=== PATIENT | female | born 1965 | race Caucasian/White ===

== ENCOUNTER 2016-12-04 18:27 | Observation (INO) | payer SELFPAY ==
--- NOTE | ~2016-12-04 | HP ---
History And Physical [id number] [place]. [address] NAME: ESME RAYMOND : 61 STATUS : ADM Katina PAT#: [id number] AGE: 51 ADM/REG DATE : 12/04/16 MR#: [id number] REPORT SERV DATE: 12/05/16 DICTATED BY: DATE: REPORT STATUS : Draft TRANSCRIBED BY: MODL DATE: 12/05/16 DATE OF ADMISSION: 12/04/2016 PRIMARY CARE PROVIDER: The patient does not state to have one. CRITICAL CARE PHYSICIAN: Michael Macedo MD BURR GRINDER: Dr. Huerta/Dr. De Anda, whom she has not seen in the last two to three years. HISTORY OF PRESENT ILLNESS: This is a 51-year-old white female with a history of coronary artery disease, status post PCI two to three years ago. She reports to have woken up Friday morning because of chest pain and pressure to her chest, 20/10, radiating to her neck, jaw, and bilateral shoulder blades with heaviness to her arms. She also describes to have increased shortness of breath during that event along with becoming diaphoretic, nauseous, and flushed. She reports the episode lasted about 10 hours intermittently. She currently reports the chest pain and pressure is a 7/10 with mild jaw pain. She also reports to have right upper extremity chronic pain for last two years and possible "subclavian blockage" that has not been diagnosed. The patient denies any personal history of DVT or pulmonary embolus. The patient denies any recent fever or chills, palpitations, or syncopal episodes. She denies any PND or orthopnea. PAST MEDICAL HISTORY: 1. The patient reports coronary artery disease, status post PCI x2, which she reports she did not follow up with Cardiology post the second PCI due to financial reasons. 2. Heart murmur, possibly from , the patient reports. 3. CVA without residual. 4. Hyperlipidemia. 5. Hypertension. 6. Hypothyroid. 7. "Subclavian blockage.". 8. Carcinoma inside cervix. 9. Acute recurrent pancreatitis, possibly due to dyslipidemia and alcohol consumption per previous history and physical report. 10.Fatty liver. 11.Obesity. 12.Chronic pain. 13.History of interstitial lung disease. 14.COPD. 15.Tobacco dependence. PAST SURGICAL HISTORY: 1. Cholecystectomy. 2. Partial hysterectomy. 3. Two lumpectomies to left breast. History And Physical [address] [address] NAME: ESME RAYMOND : 61 STATUS : ADM Katina PAT#: [id number] AGE: 51 ADM/REG DATE : 12/04/16 MR#: [id number] REPORT SERV DATE: 12/05/16 DICTATED BY: DATE: REPORT STATUS : Draft TRANSCRIBED BY: MODLorraine DATE: 12/05/16 4. Major reconstructive nose surgery. 5. Tonsillectomy. SOCIAL HISTORY: 1. She is a retired job placement specialist, who is . Does not have any children. 2. Smokes about one and a half to two packs per day x30 years, reports attempting to cut down to four cigarettes a day. 3. Occasional alcohol use socially. 4. No illicit drug use. FAMILY HISTORY: Mother with a PE and breast cancer. Father with renal failure and an unknown cardiac issue. REVIEW OF SYSTEMS: A 14-point review of systems was performed, significant for HPI. No other contributory diagnoses identified. ALLERGIES: 1. SULFA. REACTION OF NAUSEA, ITCHING, AND HIVES. 2. ERYTHROMYCIN BASE. REACTION OF NAUSEA, ITCHING, AND HIVES. 3. SULFAMETHOXAZOLE, BACTRIM. REACTION OF HIVES, NAUSEA, AND ITCHING. 4. TRIMETHOPRIM FROM BACTRIM. REACTION OF HIVES, NAUSEA, AND ITCHING. HOME MEDICATIONS: Include: 1. Prilosec 20 p.o. every morning. 2. Claritin 10 p.o. daily as needed p.r.n. seasonal allergies. 3. Spiriva Respimat 2.5 mcg per inhalation, one puff inhalation every morning. 4. Aspirin 81 mg p.o. every morning. PHYSICAL EXAMINATION: GENERAL: Cooperative, in no apparent distress. HEENT: Head, normocephalic and anicteric. Normal EOM. PERRLA. No xanthelasma. Nares patent. Moist mucous membranes. NECK: Trachea midline. No thyromegaly, JVD, or bruits. RESPIRATORY: Clear to auscultation bilaterally anterior and posterior. Respirations even and unlabored. No wheezes, rhonchi, or crackles. CARDIOVASCULAR: Regular rate and rhythm. No murmur, rub, or gallop appreciated. No chest wall tenderness to palpation. ABDOMEN: Soft, nontender, nondistended. Normal bowel sounds auscultated throughout. No masses or organomegaly. EXTREMITIES: No peripheral edema. DP/PT and radial pulses palpable bilaterally. No clubbing or cyanosis. SKIN: Warm, dry and intact. Normal turgor. No pallor or cyanosis. NEURO/PSYCH: Alert, oriented x3 with no acute distress. Affect appropriate to current situation. LABORATORY DATA: Sodium 134, potassium 3.4, chloride 99, HCO3 of 25.2, creatinine 0.79, GFR History And Physical [address] [address] NAME: ESME RAYMOND : 61 STATUS : ADM Katina PAT#: [id number] AGE: 51 ADM/REG DATE : 12/04/16 MR#: [id number] REPORT SERV DATE: 12/05/16 DICTATED BY: DATE: REPORT STATUS : Draft TRANSCRIBED BY: MODL DATE: 12/05/16 99, glucose 193, calcium 9.4, magnesium 1.9. White blood cells 8.2, hemoglobin 15.9, hematocrit 45.9, platelets 221. INR 1.1. Troponins x4 have been negative, less than 0.02. EKG on 12/05/2016 at 6:15 shows sinus rhythm at 74 with QT of 446. Tele shows sinus rhythm at 73. CT/CTA of the chest shows: 1. No pulmonary emboli. 2. Stable 5 mm nodules in the right middle lobe and right upper lobe. There are no new lung nodules. 3. No adenopathy. 4. Calcified atherosclerotic disease of the thoracic aorta and coronary arteries. 5. Liver remains prominent sized with diffuse fatty infiltration, unchanged from 2015. Chest x-ray on 12/04/2016 shows chronic interstitial lung disease similar to prior CT, no acute infiltrate. ASSESSMENT AND PLAN: 1. Chest pain. Troponins x3 have been less than 0.02. The patient's cardiac risk factors include hypertension and hyperlipidemia. 2. Coronary artery disease, status post PCI x2. Due to chest pain and coronary artery disease, we will keep the patient n.p.o. and due to the patient's current chest pain, we will treat the chest pain per protocol with nitro x3, morphine if pain is resolved. We will get an EKG and troponin draw. After we did above, post chest pain treatment x1 nitro, the patient's pain resolved to 0/10 chest pain. Shortly after, the patient's pain reoccurred at 3/10 and again resolved to 0/10 post second nitro. Due to above, we will schedule a cath today per Dr. Murillo's order after seeing the patient. 3. Hypertension. It appears to be stable. Blood pressure 142/63. 4. Hyperlipidemia. 5. Hypothyroidism. The patient does not appear to be compliant with her medications, she reports, due to finances. She is also not seeing a PCP or a ferris wheel operator because of financial reasons. Therefore, we will attempt to schedule a followup appointment with a new PCP, either of the patient's choice or the one whom she wishes us to appoint. We will attempt to make a followup with a PCP in one week. I have reiterated the importance of a followup with a PCP and a ferris wheel operator due to her history and for followup of her medications. EKS/MODL Adriane Brito APN / [id number] CC: Belgica Pruitt, ENRRIQUE, OPERATIONAL RISK ANALYST-BC
[2016-12-04 14:56] LABS: BASOPHILS 0.4 %; BASOPHILS ABSOLUTE 0.03 10/3/uL (0.0-0.16); EOSINOPHILS 0.7 %; EOSINOPHILS ABSOLUTE 0.06 10/3/uL (0.0-0.53); HEMATOCRIT 45.9 % (36.0-48.0); HEMOGLOBIN 15.9 g/dL (12.0-16.0); IMMATURE GRANULOCYTES 0.4 %; IMMATURE GRANULOCYTES ABSOLUTE 0.03 10/3/uL (0.0-0.11); LYMPHOCYTES 27.6 %; LYMPHOCYTES ABSOLUTE 2.26 10/3/uL (0.67-4.30); MANUAL DIFF NO %; MEAN CORPUS HGB CONC 34.6 g/dL (32.0-36.0); MEAN CORPUSCULAR HEMOGLOB 33.6 pg (26.0-34.0); MEAN PLATELET VOLUME 9.8 fL (9.2-13.0); MONOCYTES 7.1 %; MONOCYTES ABSOLUTE 0.58 10/3/uL (0.21-1.20); NEUTROPHILS 63.8 %; NEUTROPHILS ABSOLUTE 5.24 10/3/uL (2.02-8.40); PLATELET COUNT 221 10/3/uL (150-400); RBC DISTRIBUTION WIDTH 13.1 % (12.0-16.0); RED CELL COUNT 4.73 10/6/uL (4.0-5.6); WHITE BLOOD CELLS 8.2 10/3/uL (4.5-10.5)
[2016-12-04 15:01] LABS: INTERNATIONAL NORMAL RATI 1.1 UNITS (-)
[2016-12-04 15:11] LABS: BUN (BLOOD UREA NITROGEN) 7 MG/DL (6-23); CALCIUM, SERUM 9.4 MG/DL (8.5-10.4); CHEST PAIN PROFILE TAT 0 Hrs 21 Mins; CHLORIDE, SERUM 99 MMOL/L (96-112); CO2 (CARBON DIOXIDE) 26 MMOL/L (24-34); CREATININE 0.79 MG/DL (0.55-1.02); GFR AFRICAN AMERICAN 99 ML/MIN (>=60); GFR NON AFRICAN AMERICAN 85 ML/MIN (>=60); GLUCOSE, SERUM 193 MG/DL (60-99); POTASSIUM, SERUM 3.4 MMOL/L (3.5-5.3); SODIUM, SERUM 134 MMOL/L (135-148); TROPONIN I <0.02 NG/ML (<0.05)
[2016-12-04 15:46] LABS: ALLENS TEST Pos; BE (BASE EXCESS) 3.8 MEQ/L (0 +/- 2.5); CARBOXYHEMOGLOBIN 6.5 % (0-3); HCO3 (ACTUAL BICARBONATE) 25.2 MEQ/L (23-27); INSTRUMENT SERIAL # 8087; METHEMOGLOBIN 0.3 % (0-3); O2 CONTENT 21.3 VOL% (18-24); PCO2 (CO2 TENSION) 30 MMHG (35-45); PO2 (O2 TENSION) 71 MMHG (79-93); SAMPLE Arterial; pH 7.54 (7.37-7.43)
[~2016-12-04 18:27] MED LIST: ASA5GR PO; ASAB PO; FLEX PO; HORMONE; IMDUR30 PO; L40 PO; LEVOTHYROXIN150 MCG PO; LIPITOR40 PO; LOP50 PO; LOPID6 PO; LORT7 PO; LORTAB PO; METHOC750B; METHOC750B PO; NICODERM C21 MG/241 TOP; NORCO1 TA2 PO; PERCOCET1 TA4 PO; PLAVIX PO; PR25 PO; PRILO PO; PRILOSEC OTC20 MG PO; PRIN5 PO; PROGESTERONE; SPIRIVA INH; SYN125 PO; SYN88 PO; TESS PO; VICODINTAB PO; ZANTAC 150 PO; ZESTORETIC1 TA1 PO; ZOCOR40 PO; ZOFRAN4 PO; [UNRECOGNIZED DRUG - REMARK]
[2016-12-04] MEDS ORDERED: PRILO PO (18:42)
[2016-12-04] MEDS ORDERED: CLARIT10 PO (18:42)
[2016-12-04] MEDS ORDERED: SPIRIVA RESPIMAT INH (18:43)
[2016-12-04] MEDS ORDERED: ASAB PO (18:44)
[2016-12-05 06:42] LABS: TROPONIN I <0.02 NG/ML (<0.05)
[2016-12-05 09:41] LABS: BUN (BLOOD UREA NITROGEN) 10 MG/DL (6-23); CALCIUM, SERUM 9.3 MG/DL (8.5-10.4); CHLORIDE, SERUM 102 MMOL/L (96-112); CO2 (CARBON DIOXIDE) 26 MMOL/L (24-34); CREATININE 0.57 MG/DL (0.55-1.02); GFR AFRICAN AMERICAN 123 ML/MIN (>=60); GFR NON AFRICAN AMERICAN 106 ML/MIN (>=60); GLUCOSE, SERUM 121 MG/DL (60-99); POTASSIUM, SERUM 4.1 MMOL/L (3.5-5.3); SODIUM, SERUM 137 MMOL/L (135-148)
[2016-12-05 11:50] LABS: BASOPHILS 0.1 %; BASOPHILS ABSOLUTE 0.01 10/3/uL (0.0-0.16); EOSINOPHILS 0 %; HEMOGLOBIN 14.9 g/dL (12.0-16.0); IMMATURE GRANULOCYTES 0.2 %; IMMATURE GRANULOCYTES ABSOLUTE 0.03 10/3/uL (0.0-0.11); LYMPHOCYTES 9.4 %; LYMPHOCYTES ABSOLUTE 1.18 10/3/uL (0.67-4.30); MEAN CORPUS HGB CONC 33.9 g/dL (32.0-36.0); MEAN CORPUSCULAR HEMOGLOB 33.6 pg (26.0-34.0); MEAN CORPUSCULAR VOLUME 99.3 fL (80-100); MEAN PLATELET VOLUME 10.6 fL (9.2-13.0); MONOCYTES 9.4 %; MONOCYTES ABSOLUTE 1.17 10/3/uL (0.21-1.20); NEUTROPHILS 80.9 %; PLATELET COUNT 228 10/3/uL (150-400); RBC DISTRIBUTION WIDTH 13.3 % (12.0-16.0); RED CELL COUNT 4.43 10/6/uL (4.0-5.6)
[2016-12-05 11:51] LABS: MANUAL DIFF NO %; WHITE BLOOD CELLS 12.5 10/3/uL (4.5-10.5)
[2016-12-05 11:57] LABS: INTERNATIONAL NORMAL RATI 1.1 UNITS (-); PROTIME (NOT ORD) 13.9 SEC (12.0-14.5)
[2016-12-05 12:06] LABS: CHOL/HDL RATIO(NOT ORDER) 8.7 (0-5); CHOLESTEROL 356 MG/DL (< 200); HDL CHOLESTEROL 41 MG/DL (> 49); LDL CHOLESTEROL 289 MG/DL (< 130); NON-HDL CHOLESTEROL 315 MG/DL (< 160); TRIGLYCERIDE 132 MG/DL (< 150)
[2016-12-06 05:39] LABS: BUN (BLOOD UREA NITROGEN) 11 MG/DL (6-23); CHLORIDE, SERUM 103 MMOL/L (96-112); CO2 (CARBON DIOXIDE) 26 MMOL/L (24-34); CREATININE 0.59 MG/DL (0.55-1.02); GFR AFRICAN AMERICAN 121 ML/MIN (>=60); GFR NON AFRICAN AMERICAN 105 ML/MIN (>=60); GLUCOSE, SERUM 118 MG/DL (60-99); POTASSIUM, SERUM 3.4 MMOL/L (3.5-5.3); SODIUM, SERUM 137 MMOL/L (135-148)
[2016-12-06 05:42] LABS: HEMATOCRIT 41.2 % (36.0-48.0)
[2016-12-06] MEDS ORDERED: PRIN5 PO (09:34)
[2016-12-06] MEDS ORDERED: LIPITOR40 (09:34)
[2016-12-06] MEDS ORDERED: NITROQUICK0.4 MG (09:37)
[2016-12-06] MEDS ORDERED: LOP25 PO (09:37)
[2016-12-06] MEDS ORDERED: PLAVIX PO (09:38)
== END 2016-12-06 11:00 | disposition home or self-care (01) ==
LOC: ER 18:27 → CDU1 18:43 → SSU2 12-05 14:21
PROVIDERS: Clinical Nurse Specialist; Emergency Medicine; Internal Medicine Cardiovascular Disease; Nurse Practitioner Family
DX: T82.855A Stenosis of coronary artery stent, initial encounter (principal); E78.5 Hyperlipidemia, unspecified; I10 Essential (primary) hypertension; E03.9 Hypothyroidism, unspecified; E66.9 Obesity, unspecified; J44.9 Chronic obstructive pulmonary disease, unspecified; Z90.711 Acquired absence of uterus with remaining cervical stump; Z90.89 Acquired absence of other organs; Z90.49 Acquired absence of other specified parts of digestive tract; Z80.3 Family history of malignant neoplasm of breast; Z88.2 Allergy status to sulfonamides; Z88.1 Allergy status to other antibiotic agents; Z88.8 Allergy status to other drugs, medicaments and biological substances; Z79.82 Long term (current) use of aspirin; Z79.899 Other long term (current) drug therapy
CPT/HCPCS: 36600; 71010; 71020; 71275; 80048; 80061; 82805; 83735; 84484; 84703; 85014; 85018; 85025; 85347; 85379; 85610; 85730; 93005; 93458; 93571; 94640; 96374; 96375; 96376; 99152; 99153; 99285; A9270-GY; C1713; C1725; C1760; C1769; C1874; C9600; G0378; J0153; J2250; J2405; J2930; J3010; Q9967